=== PATIENT | female | born 1960 | race Caucasian/White ===

== ENCOUNTER → 2022-10-10 08:58 | Outpatient (CLI) | payer OTHER, SELFPAY ==
--- NOTE | ~2022-10-10 | MR_ITS ---
EXAMINATION: MR knee RT wo con DATE: 10/10/2022 09:40 INDICATION: Right knee pain TECHNIQUE: Magnetic resonance imaging (MRI) of the right knee was performed without intravenous contr ast. Sequences included coronal PD-weighted FSE, coronal PD-weighted FS FSE, sagittal T2-weighted FS E, sagittal PD-weighted FS FSE and axial PD weighted fat saturated FSE. COMPARISON: Radiograph dated 09/02/2022 FINDINGS: Medial compartment: Medial meniscus is normal. Partial-thickness cartilage loss along the anterior to central weightbeari ng medial femoral condyle with deep chondral fissuring and underlying mild edema-like subarticular ma rrow signal change at the anterior weightbearing medial femoral condyle. Marginal osteophytes replaci ng portions of the articular cartilage along the posterior margin of the weightbearing medial femoral condyle. Mild partial-thickness cartilage loss with smooth chondral surface along the posterior medi al tibial plateau. Lateral compartment: 5-6 mm lateral extrusion of the lateral meniscal body. Complex tear involving the body and anterior h orn of the lateral meniscus. Partial-thickness chondral fissuring without degenerative subchondral ch anges at the central aspect of the lateral tibial plateau. Cartilage along the weightbearing lateral femoral condyle appears relatively preserved. Patellofemoral compartment: Partial-thickness chondral fissuring at the inferior aspect of the apical ridge and lateral patellar facet, the former with tiny underlying focus of subarticular edema-like signal change. Small central subchondral osteophyte at the site of a small region of deep chondral fissuring at the inferolateral aspect of the medial trochlea. Ligaments and tendons: Anterior and posterior cruciate ligaments are normal. The medial collateral ligament and fibular lili ateral ligament complex are normal. The extensor mechanism is normal. Mild tendinopathy without tear at the distal semimembranosus tendon. The visualized medial and lateral hamstring tendons as well as the iliotibial band are otherwise normal. Fluid: Small right knee joint effusion. Small Irvin's cyst. No loose osteochondral bodies identified. Osseous/other: Bone alignment is normal. Small low signal intensity sclerotic bone islands with spiculated margins a t the posterior medial metaphyseal region of the distal right tibia. No fracture or pathologic marrow replacing process. IMPRESSION: 1. Complex tear of the body and anterior horn of the lateral meniscus. 2. 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 3. Small right knee joint effusion and small Irvin's cyst. Reviewed, dictated and finalized at location A. [employer] IMPRESSION: 1. Complex tear of the body and anterior horn of the lateral meniscus. 2. 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 3. Small right knee joint effusion and small Irvin's cyst.
== END ==
PROVIDERS: PCP Physician Assistant Medical; Visit Provider Orthopaedic Surgery
DX: M25.461 Effusion, right knee (principal); M17.11 Unilateral primary osteoarthritis, right knee; S83.271A Complex tear of lateral meniscus, current injury, right knee, initial encounter; X58.XXXA Exposure to other specified factors, initial encounter
CPT/HCPCS: 73721

== ENCOUNTER 2025-04-17 16:05 | Emergency (ER) | payer OTHER, SELFPAY ==
--- NOTE | ~2025-04-17 | XR_ITS ---
XR foot RT min 3V 04/17/2025 16:29 Indication: Right lateral foot pain Procedure: 4 views right foot Comparison: No prior studies for comparison. Findings: There is a minimally displaced extra-articular fracture of the fifth metatarsal. Lisfranc joint intact. Mild osteoarthritis first MTP joint. Age- indeterminate subtle avulsion fracture distal lateral margin of the calcaneus. Impression: 1: Minimally displaced oblique extra-articular fracture of the fifth metatarsal. 2: Age-indeterminate avulsion fracture distal lateral margin of the calcaneus. Reviewed, dictated and finalized at location O. Impression: 1: Minimally displaced oblique extra-articular fracture of the fifth metatarsal . 2: Age-indeterminate avulsion fracture distal lateral margin of the calcaneus.
--- OUTSIDE RECORDS SUMMARY | 2025-04-17 16:08 | XMS_ITS | Encounter Summary ---
Author Organization [facility] Address [facility] [place] [address] Care Team Providers Care Clam Dredger Name Role Phone Shaina Johnson Primary Care Provider [phone] Vicente Ornelas MD Unavailable [phone] Encounter Details Date Type Department Care Team (Late st Contact Info) Description 01/10/2021 [facility] [address] [id number] Tello Long MA Social History Tobacco Use Types Packs/Day Years Used Date Smoking Tobacco: Former Cigarettes Q uit: 1980 Smokeless Tobacco: Never Comments:1/4 packs pery day from her teenage years untill her 20's Alcohol Use Standard Drinks/Week Comments No 0 (1 standard drink = 0.6 oz pur e alcohol) AUDIT-C Answer Date Recorded Frequency of Alcohol Consumption Never 06/12/2019 Average Number of Drinks Not on file 019 Frequency of Binge Drinking Not on file 05/25 Comments No Sex and Gender Information Value Date Recorded Sex Assigned at Female 09/17/2024 8:15 AM CUT OFF SAW GRADER Legal Sex Female 10:09 PM CDT Gender Identity Not on file Sexual Orientation Not on file 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 Yes 12/27/2020 9:24 AM CDT documented as of this encounter Plan of Treatment Upcoming Encounters Date Type Department Care Team (Late st Contact Info) Description 07/22/2025 11:00 AM CUT OFF SAW GRADER Office Visit [facility] [address] [place] [address] Aden Mcdowell MD [address] [place] [address] 10/05/2025 9:45 AM CUT OFF SAW GRADER Office Visit [facility] [address], [address] [place] [address] Vicente Ornelas MD [facility]. [address] [place], [place] [id number] documented as of this encounter Procedures Procedure Name Priority Date/Time Associated Diagnosis Comments COMPREHENSIVE METABOLIC PANEL Routine 01/12/2024 LIPID PANEL Routine 01/12/2024 CBC, MANUAL DIFF Routine 01/12/2024 THYROID STIM HORMONE TSH Routine 01/12/2024 CBC (OUTSIDE LAB) Routine 01/10/2021 VITAMIN B-12 Routine 01/10/2021 COMPREHENSIVE METABOLIC PANEL Routine 01/10/2021 THYROID STIM HORMONE TSH Routine 01/10/2021 LIPID PANEL Routine 01/09/2021 GLUCOSE BLOOD, QNT Routine 01/09/2021 documented in this encounter Results * COMPREHENSIVE METABOLIC PANEL (01/12/2024) Pathologist [facility] SODIUM S/P/B 138 GLUCOSE 79 mg/dL AST 18 BUN 13 CREATININE S/P/B 0.56 0.5 - 1.0 CALCIUM S/P/B 9.8 POTASSIUM S/P/B 4.2 CHLORIDE S/P/B 101 ALT 17 GFR ESTIMATE 103 Default History Genericprovider LABORATORY Final Result * LIPID PANEL (01/12/2024) Pathologist [facility] CHOLESTEROL 161 TRIGLYCERIDES 136 HDL 59 LDL (CALCULATED) 79 NON HDL CHOLESTEROL 102 Default History Genericprovider LABORATORY Final Result * CBC, MANUAL DIFF (01/12/2024) Pathologist [facility] WBC 6.2 HGB 14.1 HCT 42.2 PLT 229 Default History Genericprovider LABORATORY Final Result * THYROID STIM HORMONE TSH (01/12/2024) Pathologist [facility] TSH 1.52 Default History Genericprovider LABORATORY Final Result * VITAMIN B-12 (01/10/2021) Pathologist [facility] VITAMIN B12 S/P/B 346 01/10/2021 us Doc [facility] Abstract LABORATORY Final Result * CBC (OUTSIDE LAB) (01/10/2021) Pathologist [facility] WBC 4.9 HGB 14.1 HCT 42.8 PLT 246 01/10/2021 us [facility] Abstract LAB-OUTSIDE/ABSTRACTED Final Result * THYROID STIM HORMONE, TSH (01/10/2021) [facility] TSH 1.39 01/10/2021 us Doc [facility] Abstract LABORATORY Final Result * (ABNORMAL) COMPREHENSIVE METABOLIC PANEL (01/10/2021) SODIUM S/P/B 132 POTASSIUM S/P/B 4.6 CO2 27 CHLORIDE S/P/B 95 GLUCOSE 369 mg/dL CALCIUM S/P/B 9.5 BUN 16 CREATININE S/P/B 0.72 0.5 - 1.0 EGFR AFR. AMER. 106(A) <=90 EGFR NON-AFR. AMER. 92(A) <=90 ALKALINE PHOSPHATASE S/P/B 52 ALT 20 AST 15 BILIRUBIN TOTAL S/P/B 0.6 ALBUMIN S/P/B 4.4 3.5 - 5.0 TOTAL PROTEIN S/P/B 7.4 GLOBULIN 3.0 01/10/2021 us Doc [facility] Abstract LABORATORY Final Result * (ABNORMAL) GLUCOSE BLOOD, QNT (01/09/2021) Pathologist [facility] GLUCOSE WHOLE BLOOD 310(A) 70 - 100 mg/dL 01/09/2021 us Doc [facility] Abstract LABORATORY Final Result * LIPID PANEL (01/09/2021) Pathologist [facility] CHOLESTEROL 108 HDL 45 TRIGLYCERIDES 126 NON HDL CHOLESTEROL 63 LDL (CALCULATED) 37 01/09/2021 us Doc [facility] Abstract LABORATORY Final Result documented in this encounter Visit Diagnoses Not on filedocumented in this encounter Additional Health Concerns Infection Onset Date Last Indicated Resolved Time COVID-19 Rule Out 07/02/2021 07/02/2021 07/02/2021 2:21 PM CUT OFF SAW GRADER documented as of this encounter Care Teams Clam Dredger Relationship Specialty Start Date End Date Shaina Johnson PA PCP - General 01/06/15 Vicente Ornelas MD [address] [address] [place]eline Manager [employer]ations CARDIOVASCULAR DISEASE 01/24/16 documented as of this encounter
--- OUTSIDE RECORDS SUMMARY | 2025-04-17 16:08 | XMS_ITS | Encounter Summary ---
Author Organization [facility] Address [address] [place] [address] Care Team Providers Care Signaling Project Engineer Name Role Phone Andrez Sims MD Primary Care Provider [phone] Shaina Johnson Primary Care Provider [phone] Encounter Details Date Type Department Care Team (Late st Contact Info) Description 12/04/2022 Telephone [facility] Radiology [address] [place] [address] Jonathan Vinson RN Social History Tobacco Use Types Packs/Day Years Used Date Smoking Tobacco: Former Comments:Smoke 0.25 pdd unti l her 20s AUDIT-C Answer Date Recorded Q1: How often do you have a drink containing alcohol? Never 12/06/2022 Q2: How many drinks containi ng alcohol do you have on a typical day when you are drinking? Patient does not drink Q3: How often do you have si x or more drinks on one occasion? Never 12/06/2022 Personal Safety Answer Date Recorded Have you ever been in or are you currently in a harmful physical or emotional relationship or is someone making you feel afraid or unsafe? 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 Never 12/06/2022 7:49 AM Ariella Barbosa, SUBHASH Q2: How many drinks containing alcohol do you have on a typical day when you are drinking? Patient does not drink 12/06/2022 7:49 AM Ariella Barbosa, SUBHASH Q3: How often do you have six or more drinks on one occasion? Never 12/06/2022 7:49 AM Ariella Barbosa RN documented as of this encounter Plan of Treatment Not on file documented as of this encounter Visit Diagnoses Not on filedocumented in this encounter Care Teams Signaling Project Engineer Relationship Specialty Start Date End Date Andrez Sims MD [address] [place] [id number] PCP - General Family Medicine 05/24/22 10/20/24 Shaina Johnson PA [address] [place] [address] PCP - General Physician Ldr Nurse 10/21/24 documented as of this encounter
--- OUTSIDE RECORDS SUMMARY | 2025-04-17 16:08 | XMS_ITS | Clinical Summary ---
Author Organization [facility] Address [address] [place] [address] Care Team Providers Care Twenty One Dealer Name Role Phone Shaina Johnson Primary Care Provider [phone] Allergies Active Allergy Reactions Criticality Noted Date Comments Flu Vac,Qval 2012- (2-49yrs) Swelling Medium 01/09/2021 Latex Rash,Itching Medium Morphine Itching Low Sulfa (Sulfonamide Antibiotics) Other (See comments) Low Reaction: Medications ALPRAZolam (XANAX) 0.25 mg tablet Take 1 tablet (0.25 mg total) by mouth nightly 0 07/02/20 18 Active aspirin 81 mg tablet Take 1 tablet (81 mg total) by mouth nightly Active omeprazole (PriLOSEC) 40 mg capsuleIndication s:Treatment of Non-Bleeding Gastric Disorder Take 1 capsule (40 mg total) by mouth daily 90 capsule 3 11/08/19 22 Active rosuvastatin (CRESTOR) 40 mg tablet Take 1 tablet (40 mg total) by mouth daily 90 tablet 3 11/08/19 22 Active ibuprofen (ADVIL,MOTRIN) 800 mg tablet 05/07/20 22 Active valsartan (DIOVAN) 160 mg tablet Take 1 tablet (160 mg total) by mouth 2 (two) times a day Active ondansetron ODT (ZOFRAN-ODT) 4 mg disintegrating tablet Take 1 tablet (4 mg total) by mouth every 8 (eight) hours as needed for nausea or vomiting 20 tablet 1 04/03/20 23 Active polyethylene glycol (MIRALAX) 17 gram/dose bulk powderIndications :Constipation, unspecified constipation type Take 17 g by mouth daily 510 g 1 08/29/19 24 Active carvediloL (COREG) 12.5 mg tablet Take 1 tablet (12.5 mg total) by mouth 2 (two) times a day 04/05/20 24 Active blood-glucose sensor (Dexcom G7 Sensor) device CHANGE EVERY 10 DAYS 9 each 2 09/20/19 25 Active insulin regular U-500 (HumuLIN R U-500) 500 unit/mL (3 mL) CONCENTRATED pen for injection INJECT 50 UNITS SUBCUTANEOUSLY THREE TIMES DAILY 27 mL 3 10/28/19 25 Active tirzepatide (Mounjaro) 12.5 mg/0.5 mL pen injector injection INJECT 12.5 MG SUBCUTANEOUSLY ONCE A WEEK 6 mL 3 12/27/19 25 Active pen needle, diabetic (BD Daphney 2nd Gen Pen Needle) 32 gauge x 5/32 needle USE 4 TIMES DAILY 400 each 3 04/05/20 25 Active pen needle, diabetic (BD Daphney 2nd Gen Pen Needle) 32 gauge x 5/32 needle USE 4 TIMES DAILY 400 each 3 03/29/20 24 025 Disconti nued(Reo rder) Active Problems Problem Noted Date Diagnosed Date Ventral hernia 10/06/2020 Hyperlipidemia 05/31/2020 Overview (05/31/2020): Same meds Coronary artery disease invo lving [place] coronary artery of [place] heart without angina pectoris 05/31/2020 Overview (05/31/2020): Per cardiology Essential hypertension 05/31/2020 Overview (05/31/2020): Same meds Obesity due to excess calories 01/01/2019 SBO (small bowel obstruction) 09/25/2018 Hx of hernia repair 09/19/2018 Assessment & Plan (09/19/2018 12:11 PM TRIBAL JUDGE): 2016-with Dr. Rutledge-Open repair of large ventral hernia with bilateral posterior component separation with myofascial cutaneous release with primary closure with Biologic mesh underlay and resection of jejunal diverticulum 2016- with Dr. Rodarte-Right inguinal hernia repair in Indigestion 09/19/2018 Assessment & Plan (09/19/2018 12:12 PM TRIBAL JUDGE): The patient currently takes Prilosec 20 mg daily, will increase to 40 mg daily prescription provided Abdominal pain 09/17/2018 Assessment & Plan (09/19/2018 12:03 PM TRIBAL JUDGE): Complex history of multiple abdominal infections. Presents with abdominal pain with intermittent distention and only a small about of BM for several days. Juwan nausea and vomiting. CT scan from OSH fairly unremarkable. Distention appears to be resolved at this time. Prior to discharge the patient was able to tolerate a PO diet. Diabetes mellitus 05/18/2015 Assessment & Plan (09/19/2018 12:05 PM TRIBAL JUDGE): Insulin dependant Hgb A1C 8.2 on admission Will continue home regimen at discharge, she is to follow up with her PCP for ongoing care. Encounters Date Type Department Care Team Description 02/22/2025 8:15 AM CDT Office Visit [facility] [address] [place] [address] Keaton Villalobos MD Type 2 diabetes mellitus with other specified complication, with long-term current use of insulin (HCC) (Primary Dx) 02/01/2025 10:30 AM CDT Office Visit [facility] [address] [place] [address] for Advanced Medicine 12th [place] [address] [place] [id number] Ismael Rutledge MD Abdominal wall seroma, subsequent encounter (Primary Dx); Abdominal pain; S/P repair of ventral hernia; Diabetes mellitus due to underlying condition with hyperosmolarity without coma, without long-term current use of insulin (HCC); Obesity (BMI 35.0-39.9 without comorbidity) 02/01/2025 8:54 AM CDT - 02/01/2025 11:59 PM CDT Hospital Encounter [facility] [address] [place] [address] Abdominal wall seroma, subsequent encounter; Abdominal pain Discharge Disposition: Discharge to home or self care 01/28/[address] [facility] [address] [facility] 12th [place] [address] [place] [address] Angela Mattson CMA Scheduling Appointments from Last 3 Months Immunizations Immunization Administration Dates Next Due Pfizer SARS-CoV-2 Monovalent Vaccination (12+ Yrs) PURPLE 02/28/2021 Surgical History Surgery Date Site/Laterality Comments HYSTERECTOMY HERNIA REPAIR Both open and laparoscopic ventral and inguinal hernia repairs ABDOMINAL SURGERY Cholecystectomy IMAGE GUIDED DRAINAGE PERITONEAL OR RETROPERITONEAL FLUID COLLECTION 11/14/2022 N/A ABSCESS CATHETER INJECTION 11/22/2022 N/A ABSCESS CATHETER INJECTION 12/06/2022 N/A Medical History Medical History Date Comments Diabetes mellitus (HCC) Coronary artery disease c/b VT s /p stent GERD (gastroesophageal reflux disease) Sleep apnea Hypertension Family History Medical History Relation Name Comments Cancer Father Family history of malignant neoplasm - (Added by TW Conv) Diabetes Father Family history of diabetes mellitus - (Added by TW Conv) Diabetes Mother Family history of diabetes mellitus - (Added by TW Conv) Hypertension Mother Family history of hypertension - (Added by TW Conv) Relation Name Status Comments Father Mother Social History Tobacco Use Types Packs/Day Years Used Date Smoking Tobacco: Former Tobacco Cessation:Counseling Given: Not Answered Comments:Smoke 0.25 pdd until her 20s AUDIT-C Answer Date Recorded Q1: [...] on file Legal Sex Female 3:47 AM TRIBAL JUDGE Gender Identity Not on file Sexual Orientation Not on file Obstetrics History Last Filed Vital Signs Vital Sign Reading Time Taken Comments Blood Pressure 155/88 02/22/2025 8:13 AM CDT Pulse 73 02/22/2025 8:13 AM CDT Temperature 36.4 C (97.5 F) 02/01/2025 10:59 AM CDT Respiratory Rate 16 02/01/2025 10:59 AM CDT Oxygen Saturation 96% 02/22/2025 8:13 AM CDT Inhaled Oxygen Concentration - - Weight 94.3 kg (208 lb) 02/22/2025 8:13 AM CDT Height 157.5 cm (5' 2) 02/22/2025 8:13 AM CDT Body Mass Index 38.04 02/22/2025 8:13 AM CDT Plan of Treatment Health Maintenance Due Date Last Done Comments Albumin Creatinine Ratio, Urine 1961 Colon Cancer Screening-Colonoscopy 1961 Depression Screening 1961 Hepatitis C Screening 1961 Dilated Eye Exam 1961 Foot Exam 1961 Hepatitis B Screening 11/10/1979 Regular Well Visit/Exam 18-64 11/10/1979 Pneumococcal vaccine <65 (1 of 2 - PCV) 1980 Zoster Vaccine (1 of 2) 11/10/2011 eGFR 11/15/2023 11/14/2022, 02/12/2022 Covid-19 Vaccine (3 - 2023-2 5 season) 2024 04/01/2021, 02/28/2021 Breast Cancer Screening-Mammogram 03/11/2025 024, 03/11/2024 Influenza Vaccine (#1) 2025 Hemoglobin A1C 08/25/2025 02/22/2025, 0202/2025, 06/17/2024, Additional history exists Lipid Panel 09/29/2025 09/29/2024, 08/0 11/2023, 04/14/2023, Additional history exists DTaP/Tdap/Td Vaccine (2 - Td or Tdap) 11/27/2032 11/27/2022 Medical Devices Implanted Type Area Montessori Lead Teacher Device Identifier Shelf Expiration Date Model / Serial / Lot Stent N/A: Heart Procedures Procedure Name Priority Date/Time Associated Diagnosis Comments POCT HEMOGLOBIN A1C Routine 02/22/2025 8:16 AM CDT Type 2 diabetes mellitus with other specified complication, with long-term current use of insulin (HCC) CT ABDOMEN PELVIS W CONTRAST Schedule Routine, Read Routine (OP Routine) 02/01/2025 9:51 AM CDT Abdominal wall seroma, subsequent encounter Abdominal pain EGFR Routine 11/14/2022 8:28 AM CDT Abdominal pain POCT LIPID PANEL Routine 05/16/2022 11:3 3 AM CDT Mixed hyperlipidemia Essential hypertension Type 2 diabetes mellitus with other specified complication, with long-term current use of insulin (HCC) Class 2 severe obesity due to excess calories with serious comorbidity in adult, unspecified BMI (HCC) from Last 3 Months or Most Recently Relevant to Health Maintenance Results * (ABNORMAL) POCT hemoglobin A1c (02/22/2025 8:16 AM CDT) Hemoglobin A1C, POC 7.7(A) 4.0 - 5.6 % Blood 02/22/2025 8:16 AM CDT Keaton Villalobos MD POINT OF CARE TEST ORDER TAYLER Final Result * CT abdomen pelvis with contrast (02/01/2025 9:51 AM CDT) Anatomical Region Laterality Modality Body N/A Computed Tomogra phy 02/01/2025 10:0 7 AM CDT Impressions 02/01/2025 10:07 AM CDT Interval increase in the amount of loculated fluid underneath the right hanane-abdominal mesh with details as above. There is no leakage of oral contrast into the fluid collection. Electronically signed by: Dustin Young M.D. Narrative 02/01/2025 10:07 AM CDT EXAMINATION: Computed tomography of the abdomen and pelvis with oral and intravenous contrast material. HISTORY: Ventral hernia repair, complicated by fluid collection. TECHNIQUE: CT scan of the abdomen and pelvis was performed after the administration of 100 mL of Optiray 350 as well as 30 mL of Gastroview. FINDINGS:. A prior CT scan dated 05/18/2024 is used as comparison. Lower chest:. There is no pericardial effusion. There is no pleural effusion. Lung bases are clear. ABDOMEN:. The liver is normal. Normal spleen. Changes of cholecystectomy. Adrenal glands and kidneys are normal bilaterally. Noted again are changes of hernia repair and a mesh in the right hemiabdomen. Since the prior examination, the lenticular fluid collection underneath the mesh has increased in size. The measurements are approximately 17 cm in length by 3 cm in largest transverse diameter, compared to 1.2 cm in transverse diameter on the prior examination. The fluid remains confined to the length of the mesh. Outside of this, there is no additional fluid collection. There is no evidence of leakage of contrast material into the fluid collection. Stomach, small bowel, and large bowel are normal. Pelvis:. Urinary bladder is normal. The uterus is present and is normal for the patient's age. Bones: Degenerative changes of the lumbar spine. Procedure Note Dustin Young MD - 02/01/2025 EXAMINATION: Computed tomography of the abdomen and pelvis with oral and intravenous contrast material. HISTORY: Ventral hernia repair, complicated by fluid collection. TECHNIQUE: CT scan of the abdomen and pelvis was performed after the administration of 100 mL of Optiray 350 as well as 30 mL of Gastroview. FINDINGS:. A prior CT scan dated 05/18/2024 is used as comparison. Lower chest:. There is no pericardial effusion. There is no pleural effusion. Lung bases are clear. ABDOMEN:. The liver is normal. Normal spleen. Changes of cholecystectomy. Adrenal glands and kidneys are normal bilaterally. Noted again are changes of hernia repair and a mesh in the right hemiabdomen. Since the prior examination, the lenticular fluid collection underneath the mesh has increased in size. The measurements are approximately 17 cm in length by 3 cm in largest transverse diameter, compared to 1.2 cm in transverse diameter on the prior examination. The fluid remains confined to the length of the mesh. Outside of this, there is no additional fluid collection. There is no evidence of leakage of contrast material into the fluid collection. Stomach, small bowel, and large bowel are normal. Pelvis:. Urinary bladder is normal. The uterus is present and is normal for the patient's age. Bones: Degenerative changes of the lumbar spine. IMPRESSION: Interval increase in the amount of loculated fluid underneath the right hanane-abdominal mesh with details as above. There is no leakage of oral contrast into the fluid collection. Electronically signed by: Dustin Young M.D. us Ismael Rutledge MD IMG CT PROCEDURES Fi nal Result * eGFR (11/14/2022 8:28 AM CDT) eGFR >90 90 - 130 mL/min/1. 73 m2 [facility] Comment: Interpretive Data Reference Interval Normal >/= 90 mL/min/1.73m2 Mildly decreased* 60 - 89 mL/min/1.73m2 Mildly to moderately decreased 45 - 59 mL/min/1.73m2 Moderately to severely decreased 30 - 44 mL/min/1.73m2 Severely decreased 15 - 29 mL/min/1.73m2 Kidney Failure < 15 mL/min/1.73m2 *Relative to young adult level Estimated glomerular filtration rate is determined by the 2020 CKD-EPI equation recommended by the National Kidney Foundation (A Unifying Approach to GFR Estimation: Recommendations of the NKF-ASK Task Force on Reassessing the Inclusion of Race in Diagnosing Kidney Disease, JASN 2020). The CKD-EPI equation should not be used for patients with unstable renal function and has not been validated in children and those over 70. Current interpretive data was last reviewed 2021. Blood 11/14/2022 8:28 AM CDT 11/14/2022 8:52 AM CDT Jonathan Stratton MD LAB BLOOD ORDERABLES Final Result [facility] Department [place] [address] * POCT lipid panel (05/16/2022 11:33 AM CDT) Cholesterol, POC <100 mg/dL HDL, POC 46 mg/dL Triglycerides, POC 73 mg/dL LDL Cholesterol POC n/a mg/dL Chol/HDL Ratio, POC n/a Non-HDL Cholesterol, POC n/a mg/dL Capillary blood 05/16/2022 1 1:33 AM CDT Keaton Villalobos MD POINT OF CARE TEST ORDER TAYLER Final Result from Last 3 Months or Most Recently Relevant to Health Maintenance Insurance [facility] CHOICE [address] [address] [employer] CHOICE [facility] Advance Directives For more information, please contact: [phone] * Full Code (Latest Code Status on File) Date Activated Date Inactivated Comments 12/06/2022 7:50 AM 12/07/2022 4:41 AM * Full Code Date Activated Date Inactivated Comments 11/22/2022 7:33 AM 11/23/2022 4:49 AM * Full Code Date Activated Date Inactivated Comments 11/14/2022 8:53 AM 11/15/2022 4:48 AM * Full Code Date Activated Date Inactivated Comments 07/02/2022 11:42 AM 07/03/2022 4:49 AM * Full Code Date Activated Date Inactivated Comments 09/17/2018 9:32 PM 09/19/2018 8:04 PM Care Teams Twenty One Dealer Relationship Specialty Start Date End Date Shaina Johnson PA [address] [place] [id number] PCP - General Physician Liver Trimmer 10/21/24
--- OUTSIDE RECORDS SUMMARY | 2025-04-17 16:08 | XMS_ITS | Encounter Summary ---
Author Organization [facility] Address [facility] [place] [address] Care Team Providers Care Psychologist Personnel Name Role Phone Shaina Johnson Primary Care Provider [phone] Vicente Ornelas MD Unavailable Encounter Details Date Type Department Care Team (Late st Contact Info) Description 04/24/2020 Abstract [facility] at [address] [address] Tello Long [place] Social History Tobacco Use Types Packs/Day Years Used Date Smoking Tobacco: Former Cigarettes Smokeless Tobacco: Never Comments:1/4 packs pery day [...] Sex Assigned at Female 09/17/2024 8:15 AM QUALITY ASSURANCE TEST PROGRAM MANAGER Legal Sex Female 10:09 PM CDT Gender Identity Not on file Sexual Orientation Not on file 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 No / Unsure 04/26/2020 8:50 AM CDT documented as of this encounter Plan of Treatment Upcoming Encounters Date Type Department Care Team (Late st Contact Info) Description 07/22/2025 11:00 AM QUALITY ASSURANCE TEST PROGRAM MANAGER Office Visit [facility] Multispecialty Care - [facility] [address] [facility] [place] [address] Aden Mcdowell MD [address] [facility] [address] [place] [address] 10/05/2025 9:45 AM QUALITY ASSURANCE TEST PROGRAM MANAGER Office [facility] [facility], [address] [place] [address] Vicente Ornelas MD Three [facility]. [address] [place], [place] [id number] documented as of this encounter Procedures Procedure Name Priority Date/Time Associated Diagnosis Comments BASIC METABOLIC PANEL Routine 04/14/2020 documented in this encounter Results * (ABNORMAL) BASIC METABOLIC PANEL (04/14/2020) SODIUM S/P/B 136 POTASSIUM S/P/B 3.9 CO2 27 CHLORIDE S/P/B 101 GLUCOSE 279 mg/dL CALCIUM S/P/B 9.0 BUN 26 CREATININE S/P/B 0.74 0.5 - 1.0 EGFR AFR. AMER. 103(A) <=90 EGFR NON-AFR. AMER. 89 <=90 04/14/2020 us Doc [facility] Abstract LABORATORY Final Result documented in this encounter Visit Diagnoses Not on filedocumented in this encounter Additional Health Concerns Infection Onset Date Last Indicated Resolved Time COVID-19 Rule Out 07/02/2021 07/02/2021 07/02/2021 2:21 PM QUALITY ASSURANCE TEST PROGRAM MANAGER documented as of this encounter Care Teams Psychologist Personnel Relationship Specialty Start Date End Date Shaina Johnson PA PCP - General 01/06/15 Vicente Ornelas MD [facility]. [facility] [address] [place] [address] [place] [facility] Pharmacist CARDIOVASCULAR DISEASE 01/24/16 documented as of this encounter
--- OUTSIDE RECORDS SUMMARY | 2025-04-17 16:08 | XMS_ITS | Encounter Summary ---
Author Organization [facility] Address [facility] [place] [address] Care Team Providers Care Assistant Facility Manager Name Role Phone Alex Shaina CHOWDHURY Primary Care Provider Vicente Ornelas MD Unavailable [phone] Encounter Details Date Type Department Care Team (Latest Contact Info) Description 06/30/2018 Abstract [facility] , Jose Gil MD Social History Tobacco Use Types Packs/Day Years Used Date Smoking Tobacco: Former Cigarettes Smokeless Tobacco: Never Comments:1/4 packs pery day from her teenage years untill her 20's Alcohol Use Standard Drinks/Week Comments Not Asked 0 (1 standard drink = 0.6 oz pur e alcohol) Comments Unknown Sex and Gender Information Value Date Recorded Sex Assigned at Female 09/17/2024 8:15 AM DIRECTOR VALIDATION Legal Sex Female 10:09 PM CDT Gender Identity Not on file Sexual Orientation Not on file 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 [address] [place] [address] 10/05/2025 9:45 AM DIRECTOR VALIDATION Office Visit [facility] [facility], [address] [place] [address] Vicente Ornelas MD [facility]. [address] [place] [address] documented as of this encounter Visit Diagnoses Not on filedocumented in this encounter Additional Health Concerns Infection Onset Date Last Indicated Resolved Time COVID-19 Rule Out 07/02/2021 07/02/2021 07/02/2021 2:21 PM DIRECTOR VALIDATION documented as of this encounter Care Teams Assistant Facility Manager Relationship Specialty Start Date End Date Shaina Johnson PA PCP - General 01/06/15 Vicente Ornelas MD [facility]. [address] [place] [address] [facility] Assistant Director CARDIOVASCULAR DISEASE 01/24/16 documented as of this encounter
--- OUTSIDE RECORDS SUMMARY | 2025-04-17 16:08 | XMS_ITS | Encounter Summary ---
Author Organization [facility] Address [facility] [place] [address] Care Team Providers Care Garbage Truck Helper Name Role Phone Alex Shaina CHOWDHURY Primary Care Provider [phone] Vicente Ornelas MD Unavailable [phone] Encounter Details Date Type Department Care Team (Late st Contact Info) Description 07/26/2020 [facility] Message [facility] [facility], [facility] [address] [place] [address] Vicente Ornelas MD Three [facility]. 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 No / Unsure 07/25/2020 7:00 AM FLYING II INSTRUCTOR documented as of this encounter Progress Notes * Camilla Joya RN - 07/27/2020 8:54 AM CST See message NG II INSTRUCTOR documented in this encounter Plan of Treatment Upcoming Encounters Date Type Department Care Team (Late st Contact Info) Description 07/22/2025 11:00 AM FLYING II INSTRUCTOR Office Visit [facility] Multispecialty Care - [address] [place] [address] Aden Mcdowell MD [address] [place] [address] [address] [place] [address] 10/05/2025 9:45 AM FLYING II INSTRUCTOR Office Visit [facility], [address] [place] [address] Vicente Ornelas MD [facility]. [address] [place] [address] documented as of this encounter Visit Diagnoses Not on filedocumented in this encounter Additional Health Concerns Infection Onset Date Last Indicated Resolved Time COVID-19 Rule Out 07/02/2021 07/02/2021 07/02/2021 2:21 PM FLYING II INSTRUCTOR documented as of this encounter Care Teams Garbage Truck Helper Relationship Specialty Start Date End Date Shaina Johnson PA PCP - General 01/06/15 Vicente Ornelas MD Three [facility]. [address] [place] [address] Adeline Floor Clerk CARDIOVASCULAR DISEASE 01/24/16 documented as of this encounter
--- OUTSIDE RECORDS SUMMARY | 2025-04-17 16:08 | XMS_ITS | Encounter Summary ---
Author Organization [facility] Address [facility] [place] [address] Care Team Providers Care Bottom Scrubber Name Role Phone Shaina Johnson Primary Care Provider [phone] Vicente Ornelas MD Unavailable [phone] Encounter Details Date Type Department Care Team (Late Contact Info) Description 05/03/2017 Abstract [facility] AT [address] [address] Tello Long MA Social History Tobacco Use Types Packs/Day Years Used Date Smoking Tobacco: Former Cigarettes Smokeless Tobacco: Never Comments:1/4 packs pery day from her teenage years untill her 20's Alcohol Use Standard Drinks/Week Comments Not Asked 0 (1 standard drink = 0.6 oz pur e alcohol) Comments Unknown Sex and Gender Information Value Date Recorded Sex Assigned at Female 09/17/2024 8:15 AM ORTHODONTIC LAB TECHNICIAN Legal Sex Female 10:09 PM CDT Gender Identity Not on file Sexual Orientation Not on file 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 Not on file Not on file Not on file documented as of this encounter Plan of Treatment Upcoming Encounters Date Type Department Care Team (Late Contact Info) Description 07/22/2025 11:00 AM ORTHODONTIC LAB TECHNICIAN Office Visit [facility] - [address], [address] [place] [address] Aden Mcdowell MD [address] [place] [address] 10/05/2025 9:45 AM ORTHODONTIC LAB TECHNICIAN Office Visit [facility] [address] [place] [address] Vicente Ornelas MD [facility]. [address] [place], [place] [address] documented as of this encounter Procedures Procedure Name Priority Date/Time Associated Diagnosis Comments CBC (OUTSIDE LAB) Routine 10/31/2017 COMPREHENSIVE METABOLIC PANEL Routine 10/31/2017 CBC (OUTSIDE LAB) Routine 12/05/2016 COMPREHENSIVE METABOLIC PANEL Routine 12/05/2016 documented in this encounter Results * (ABNORMAL) COMPREHENSIVE METABOLIC PANEL (10/31/2017) Pathologist [facility] SODIUM S/P/B 137 POTASSIUM S/P/B 4.5 CO2 24 CHLORIDE S/P/B 95 GLUCOSE 172 mg/dL CALCIUM S/P/B 9.9 BUN 22 CREATININE S/P/B 0.63 0.5 - 1.0 EGFR AFR. AMER. 117(A) <=90 EGFR NON-AFR. AMER. 101(A) <=90 ALKALINE PHOSPHATASE S/P/B 52 ALT 23 AST 22 BILIRUBIN TOTAL S/P/B 0.3 ALBUMIN S/P/B 4.8 3.5 - 5.0 TOTAL PROTEIN S/P/B 7.8 10/31/2017 us Doc [facility] LABORATORY Final Result * CBC (OUTSIDE LAB) (10/31/2017) Pathologist [facility] WBC 6.6 HGB 14.8 HCT 45 PLT 293 10/31/2017 us Doc [facility] Abstract LAB-OUTSIDE/ABSTRACTED Final Result * CBC (OUTSIDE LAB) (12/05/2016) WBC 5.4 HGB 14.3 HCT 42.7 PLT 241 12/05/2016 us Doc [facility] Abstract LAB-OUTSIDE/ABSTRACTED Final Result * COMPREHENSIVE METABOLIC PANEL (12/05/2016) SODIUM S/P/B 138 POTASSIUM S/P/B 4.4 CO2 27 CHLORIDE S/P/B 103 GLUCOSE 122 mg/dL CALCIUM S/P/B 9.2 BUN 21 CREATININE S/P/B 0.68 0.5 - 1.0 EGFR NON-AFR. AMER. >60 <=90 ALKALINE PHOSPHATASE S/P/B 45 ALT 24 AST 19 BILIRUBIN TOTAL S/P/B 0.6 ALBUMIN S/P/B 4.1 3.5 - 5.0 TOTAL PROTEIN S/P/B 7.2 12/05/2016 us Doc [facility] Abstract LABORATORY Final Result documented in this encounter Visit Diagnoses Not on filedocumented in this encounter Additional Health Concerns Infection Onset Date Last Indicated Resolved Time COVID-19 Rule Out 07/02/2021 07/02/2021 07/02/2021 2:21 PM ORTHODONTIC LAB TECHNICIAN documented as of this encounter Care Teams Bottom Scrubber Relationship Specialty Start Date End Date Shaina Johnson PA PCP - General 01/06/15 Vicente Ornelas MD [facility]. [address] [place] [address] [place] [employer] CARDIOVASCULAR DISEASE 01/24/16 documented as of this encounter
[2025-04-17 16:15] VITALS: BP 154/77; PULSE 70; RESP 18; TEMP 35.7; O2SAT 98
--- NOTE | 2025-04-17 16:21 | ED.LOWEXIN ---
HPI - Extremity Injury (Lower) General Chief Complaint: Extremity Injury, Lower Stated Complaint: Fall / RT Foot Pain patient presents to the [facility] accompanied by spouse with complaints of right foot pain and bruising that began 5 days ago. Patient noted initially she fell getting this right foot stuck in between 2 blocks noted hearing a crunching sound and had some pain but then was able to get up, work the next day, and has been okay until today. Patient noted accidentally stepping on the ball of her foot and toes and had significant pain to the area. This along with the significant bruising that has started thought she should be evaluated. Does also note some numbness in her little toe. Related Data Home Medications ?Medication ?Instructions ?Recorded ?Confirmed ?Last Taken ?Type aspirin 81 mg tablet,delayed 81 mg PO DAILY 04/10/22 04/17/25 Unknown History release valsartan 160 mg tablet 160 mg PO BID 12/03/23 04/17/25 Unknown History tirzepatide 12.5 mg/0.5 mL 12.5 mg subcut WEEKLY 12/25/23 04/17/25 Unknown History subcutaneous pen injector (Mounjaro) carvedilol 12.5 mg tablet 12.5 mg PO Q12H 04/12/24 04/17/25 Unknown History Allergies Allergy/AdvReac Type Severity Reaction Status Date / Time Sulfa (Sulfonamide Allergy Severe tongue Verified 04/17/25 16:07 Antibiotics) swelling doxycycline Allergy Intermediate Hives Verified 04/17/25 16:07 iodine Allergy Unknown Unknown Verified 04/17/25 16:07 morphine Allergy Unknown Hives Verified 04/17/25 16:07 Review of Systems Constitutional: Constitutional: Reports as per HPI, Denies chills, Denies fatigue, Denies fever(s) and Denies weakness Eyes: Eyes: Reports no additional eye complaints Cardiovascular: Cardiovascular: Reports no additional cardiovascular complaints Respiratory: Respiratory: Reports no additional respiratory complaints Gastrointestinal: Gastrointestinal: Reports no additional gastrointestinal complaints Genitourinary: Genitourinary: Reports no additional female genitourinary complaints Musculoskeletal: Musculoskeletal: Reports as per HPI, Reports arthralgias, Denies joint swelling and Denies muscle cramps Integumentary/Breasts: Skin/Breast: Reports as per HPI, Denies pruritus and Denies rash Comments: Bruising right foot Neurologic: Reports as per HPI, Denies vertigo, Denies dizziness, Denies focal weakness, Denies numbness and Denies weakness Psychiatric: Psychiatric: Reports no additional psychiatric complaints Endocrine: Endocrine: Reports no additional endocrine complaints Hematologic/Lymphatic: Hematologic/Lymphatic: Reports no additional hematologic/lymphatic complaints Allergic/Immunologic: Allergic/Immunologic: Reports no additional allergic/immunologic complaints [facility] Past Medical History Medical History (Updated 04/17/25 @ 16:49 by Adelita Floyd, HOME ENERGY CONSULTANT SUPERVISOR-C) ALINE (obstructive sleep apnea) CAD (coronary artery disease) Hyperlipidemia Diabetes Diabetes with retinopathy Vitamin B12 deficiency HTN (hypertension), benign Arthritis of right knee Obesity Abdominal hernia With reaction to the mesh, incompetent Weight loss Lumbar pain Hip pain, chronic Anxiety Surgical History Surgical History History of abdominal surgery History of hernia repair History of knee surgery right knee History of cholecystectomy History of biopsy Family History Family History Mother Carcinoma of colon Other Diabetes mellitus Family history of cardiovascular disease Family history of kidney disease Family history of malignant neoplasm Hypertension Social History Social History (Updated 03/23/25 @ 13:36 by Elijah Reis) Social History: 03/17/25 very confident with medical forms Smoking status: Never smoker Alcohol intake: current Substance use: never Substance use type: does not use Do You Feel Safe in your Home?: Yes Lack of Transportation: No Lack of Food: Never True Current Housing: I Have Housing Concerned About Future Housing: No Difficulty Paying Gas/Electric Bills: No Difficulty Paying for Meds: No Currently Unemployed: No Education: Trade/Vocational Certificate Difficulty w/ Childcare or Family Care: No Living arrangements: with family Occupation/Education: occupation 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 Gender identity (if verbalized by the patient): Female Sexual Orientation (if Verbalized by the Patient): Straight or Heterosexual Exam Const: General: healthy appearing and no acute distress Nutritional Appearance: well nourished Orientation/consciousness: patient oriented x3 Limitations: no limitations Resp: Effort & Inspection: normal respiratory effort Auscultation: clear to auscultation bilaterally Cardio: Rate: regular rate Rhythm: regular rhythm Skin: Rashes: no rashes Wounds: no wounds Other: significant deep purple bruising over right dorsal foot Neuro: General: patient oriented x3 Speech: normal speech Gait exam (Neuro): gait abnormal ( limited by pain, in wheelchair at [facility]) Extrem: Right lower extremity: foot Details: normal capillary refill, abnormal to inspection, tenderness Location: of the lateral foot and of the base of the 5th metatarsal, abnormal ROM of toe, no edema, ecchymosis and vascular exam Details: dorsalis pedis pulse present, posterior tibial pulse present and normal capillary refill; ROM of toes abnormal, no unusual warmth, no abrasion, no laceration, no crepitus, no foreign bodies and no puncture wound Psych: Mental Status: mental status grossly normal Affect: normal affect Attitude: cooperative Course Course Level of Care: Express Care Visit Vital Signs Vital signs: Vital Signs Temperature 96.2 F L 04/17/25 16:15 Pulse Rate 70 04/17/25 16:15 Respiratory Rate 18 04/17/25 16:15 Blood Pressure 154/77 H 04/17/25 16:15 Pulse Oximetry 98 04/17/25 16:15 Oxygen Delivery Room Air 04/17/25 16:15 Temperature 96.2 F L 04/17/25 16:15 Pulse Rate 70 04/17/25 16:15 Respiratory Rate 18 04/17/25 16:15 Blood Pressure 154/77 H 04/17/25 16:15 Pulse Oximetry 98 04/17/25 16:15 Oxygen Delivery Room Air 04/17/25 16:15 MDM - Extremity Injury (Lower) MDM Narrative Medical decision making narrative: x-rays ordered fracture noted on my assessment of x-rays. The patient was evaluated by myself in the [facility]. History is obtained from patient who is an independent historian and physical exam was performed. Available medical records were reviewed at this time. Exam findings show no acute concerns or changes; patient is non-toxic appearing and is in no distress. Patient is appropriate for outpatient treatment and follow-up. I have evaluated and discussed social determinants of health with the patient that could potentially impact subsequent diagnosis and treatment plans. Differential diagnosis and treatment plan were discussed with the patient. Patient agrees with discussion and after shared medical decision making agrees with plan of care. All questions were answered to the patient's satisfaction. Differential Diagnosis Differential diagnosis: Likely ankle sprain and strain, puncture wound of foot, fracture of toe and ankle fracture Medical Records Attestation: I reviewed the patient's medical records. Imaging Data Attestation: I personally reviewed and interpreted this imaging study as follows: My impression: Fracture mid shaft 5th metatarsal Radiologist's impression: Impression: 1: Minimally displaced oblique extra-articular fracture of the fifth metatarsal. 2: Age-indeterminate avulsion fracture distal lateral margin of the calcaneus. Reviewed, dictated and finalized at location O. Discharge Plan Discharge Clinical Impression: Fracture of fifth metatarsal bone of right foot, Fracture of calcaneus, right, closed Patient Disposition: Home Condition: Stable Instructions: Antibiotic Form Additional Instructions: There is a fracture shown your x-ray. We have placed you in an immobilization keep this all times. May remove to shower. Call the orthopedic physician you have been given to schedule an appointment as soon as possible. Ensure to take a disc of your x-ray results with you. Ice to the area 15-20 minutes 4-6 times a day until follow up with orthopedics. Minimize activities and rest the affected area as much as possible. 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 You may take over the counter tylenol and ibuprofen as needed for pain. May use the tramadol as needed for severe pain. This medication can make you drowsy do not drive, drink alcohol or operate heavy machinery while taking this medication. If you notice significantly increased pain, redness, and numbness, or tingling does to the emergency room for further evaluation of symptoms. Patient Language: Chinese Prescriptions: New tramadol 50 mg tablet 50 mg PO Q6H PRN (Reason: pain) Qty: 20 0RF No Action Humulin R U-500 (Conc) Insulin 500 unit/mL solution 50 unit subcut .every 8 hours Qty: 20 0RF aspirin 81 mg tablet,delayed release (DR/EC) 81 mg PO DAILY valsartan 160 mg tablet 160 mg PO BID omeprazole 20 mg tablet,delayed release (DR/EC) 20 mg PO DAILY Qty: 90 0RF Mounjaro 12.5 mg/0.5 mL pen injector 12.5 mg subcut WEEKLY sertraline 25 mg tablet 25 mg PO DAILY Qty: 30 0RF ibuprofen 800 mg tablet 800 mg PO Q6H Qty: 30 0RF penciclovir 1 % cream 1 applic topical Q2H 7 Days Qty: 5 2RF mecobalamin (vitamin B12) 2,500 mcg tablet,chewable 2,500 mcg PO .every 2 days Qty: 60 0RF Rx Instructions: decrease to 2000 mcg when bottle is finished. carvedilol 12.5 mg tablet 12.5 mg PO Q12H Rx Instructions: must administer with a meal/food ranolazine 500 mg tablet extended release 12 hr 500 mg PO Q12H Qty: 90 0RF rosuvastatin 40 mg tablet 40 mg PO QHS Qty: 90 1RF alprazolam 0.25 mg tablet 0.25 mg PO TID PRN (Reason: anxiety) Qty: 90 0RF Follow-up/Referrals: Bassem Flores MD [Physician, Orthopedics] Referral Note: call Tomorrow for an appointment Shaina Johnson PA-C [Primary Care Provider, Family Practice] Time of Disposition: 16:48
== END 2025-04-17 16:52 | disposition home or self-care (01) ==
PROVIDERS: Emergency Provider Nurse Practitioner Family; PCP Physician Assistant Medical
DX: S92.351A Displaced fracture of fifth metatarsal bone, right foot, initial encounter for closed fracture (principal); S92.001A Unspecified fracture of right calcaneus, initial encounter for closed fracture; W23.1XXA Caught, crushed, jammed, or pinched between stationary objects, initial encounter; G47.33 Obstructive sleep apnea (adult) (pediatric); I25.10 Atherosclerotic heart disease of native coronary artery without angina pectoris; E78.5 Hyperlipidemia, unspecified; E11.9 Type 2 diabetes mellitus without complications; Z79.84 Long term (current) use of oral hypoglycemic drugs; E53.8 Deficiency of other specified B group vitamins; I10 Essential (primary) hypertension; F41.9 Anxiety disorder, unspecified
CPT/HCPCS: 73630; 99214; G0463